=== PATIENT | female | born 1970 | race Hispanic/Latino ===

== ENCOUNTER 2023-12-21 16:43 | Emergency (ER) | payer SELFPAY ==
[~2023-12-21] VITALS: Ht 167.6 cm; Wt 97.5 kg
[2023-12-21] MEDS: SODIUM CHLORIDE 0.9% 1000ML 1,000 ML IV STA (20:29)
[2023-12-21] MEDS: KETOROLAC TROMETHAMINE 30 MG/ML VIAL IV STA ×2 (20:30→21:45)
[2023-12-21] MEDS: INSULIN REGULAR, HUMAN 100 UNIT/1 ML IV ONE (20:31)
[2023-12-21] MEDS: SODIUM CHLORIDE 0.9% 1000ML 1,000 ML IV SCH (20:33)
[2023-12-21] MEDS: CYCLOBENZAPRINE HCL 10 MG TAB PO ONE (21:42)
[2023-12-21 22:44] VITALS: PULSE 75; RESP 16; TEMP 97.5; O2SAT 97
[2023-12-21] MEDS ORDERED: NAPROSYN500 MG PO (22:54)
[2023-12-21] MEDS ORDERED: CYCLOBENZAPRINE10 MG PO (22:55)
== END 2023-12-21 23:15 | disposition home or self-care (01) ==
LOC: FSED 17:01
DX: M54.6 Pain in thoracic spine (principal); R07.89 Other chest pain; E11.65 Type 2 diabetes mellitus with hyperglycemia; M62.838 Other muscle spasm; I10 Essential (primary) hypertension; E78.5 Hyperlipidemia, unspecified; R94.31 Abnormal electrocardiogram [ECG] [EKG]
CPT/HCPCS: 36415; 71250; 72128; 80053; 81003; 82553; 82948; 84484; 85025; 93005; 99284; J1885; J7030